=== PATIENT | male | born 1950 | race Caucasian/White ===

== ENCOUNTER 2018-06-27 13:53 | Emergency (ER) | payer SELFPAY ==
[~2018-06-27] VITALS: Ht 172.7 cm; Wt 69.4 kg
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
[2018-06-27 14:16] LABS: BASOPHILS % (AUTO) 0.3 % (0.0-2.0); EOSINOPHILS % (AUTO) 2.1 % (0.0-6.0); HEMATOCRIT 42 % (39-51); HEMOGLOBIN 14.5 g/dL (13.5-17.5); LYMPHOCYTES # (AUTO) 1.8 /CMM (0.8-4.8); LYMPHOCYTES % (AUTO) 25.9 % (20.0-44.0); MEAN CORPUSCULAR HGB CONC 34 g/dl (31.0-36.0); MEAN CORPUSCULAR VOLUME 87 fL (80-96); MONOCYTES # (AUTO) 0.6 /CMM (0.1-1.30); MONOCYTES % (AUTO) 7.9 % (2.0-12.0); NEUTROPHILS # (AUTO) 4.5 /CMM (1.8-8.9); NEUTROPHILS % (AUTO) 63.8 % (43.0-81.0); PLATELET COUNT (AUTO) 127 /CMM (150-450); RED BLOOD CELL COUNT(AUTO) 4.87 MIL/uL (4.5-6.0)
--- NOTE | 2018-06-27 14:23 | NUR ---
URINE COLLECTED AND SENT TO LAB
[2018-06-27 14:30] LABS: CALCIUM, SERUM 8.3 mg/dL (8.5-10.1); CARBON DIOXIDE 29 mmol/L (21-32); CHLORIDE 104 mmol/L (98-107); CREATININE 0.7 mg/dL (0.6-1.3); GLUCOSE 97 mg/dL (74-106); SODIUM SERUM 138 mmol/L (136-145); UREA NITROGEN, BLOOD 13 mg/dL (7-18)
[2018-06-27 14:34] LABS: ACETAMINOPHEN 0 ug/ml (10-30); ALANINE AMINOTRANSFERASE 41 U/L (12-78); ALBUMIN 3.2 g/dL (3.4-5.0); ALCOHOL, BLOOD < 3 mg/dL (0-0); ALKALINE PHOSPHATASE 88 U/L (46-116); ASPARTATE AMINOTRANSFERASE 19 U/L (15-37); BILIRUBIN,DIRECT 0.1 mg/dL (0.0-0.2); BILIRUBIN,TOTAL 0.4 mg/dL (0.2-1.0); SALICYLATE 2.7 mg/dL (2.8-20.0); TOTAL PROTEIN, SERUM 6.3 g/dL (6.4-8.2)
--- NOTE | 2018-06-27 14:38 | NUR ---
UNABLE TO TAKE TO CT, PT IS AGITATED, DR YARBROUGH MADE AWARE.
[2018-06-27] MEDS ORDERED: WATER FOR INJECTION,STERILE 10 ML ONE (14:40)
[2018-06-27] MEDS ORDERED: diphenhydrAMINE HCL 50 MG/ML VIAL ONE (14:40)
[2018-06-27] MEDS ORDERED: ZIPRASIDONE MESYLATE 20 MG/VIAL VIAL IM ONE ×2 (14:40→15:00)
[2018-06-27] MEDS ORDERED: diphenhydrAMINE HCL 50 MG/ML VIAL IM ONE (15:00)
[2018-06-27 15:03] LABS: APPEARANCE,URINE Clear (CLEAR); BILIRUBIN,URINE Negative (NEGATIVE); BLOOD, URINE Trace-intact Ery/uL (NEGATIVE); COLOR,URINE Yellow (YELLOW); KETONES,URINE Negative (NEGATIVE); LEUKOCYTE ESTERASE ,URINE Negative (NEGATIVE); NITRITE, URINE Negative (NEGATIVE); PROTEIN,URINE Negative (NEGATIVE); UGLUCOSE Negative (NEGATIVE); UROBILINOGEN,URINE 0.2 EU/dL (0.2)
[2018-06-27 15:10] LABS: BACTERIA,URINE Rare /HPF (None Seen); SQUAMOUS EPITHELIAL CELL,UR Few /HPF (None Seen)
[2018-06-27] MEDS ORDERED: HALOPERIDOL LACTATE INJ 5 MG/ML VIAL IM ONE (16:30)
[2018-06-27] MEDS ORDERED: LORAZEPAM INJ 2 MG/ML VIAL IM ONE (16:30)
[2018-06-27] MEDS ORDERED: LORAZEPAM INJ 2 MG/ML VIAL ONE (16:42)
[2018-06-27] MEDS ORDERED: HALOPERIDOL LACTATE INJ 5 MG/ML VIAL ONE (16:42)
--- NOTE | 2018-06-27 17:32 | NUR ---
PT TO CT
--- NOTE | 2018-06-27 18:41 | NUR ---
CALLED LAB TO DRAW SALICILATE LEVEL
--- NOTE | 2018-06-27 22:18 | NUR ---
PT AROUSABLE TO PAIN, RESPONDS VERBALLY, PT ON MONITOR, VSS
--- NOTE | 2018-06-27 23:57 | NUR ---
REPORT GIVEN TO GRAYSON HASSAN FOR [facility]
--- NOTE | 2018-06-27 23:59 | NUR ---
Assumed care of pt. pt resting in bed w/ HOB elevated, resp even & unlabored, nad noted, on continuous pulse-ox w/ cardiac monitoring, bed low to ground w/ side rails up. Will continue to monitor.
--- NOTE | 2018-06-28 01:45 | NUR ---
pt continues to sleep in bed w/ resp even & unlabored, on continuous pulse-ox w/ cardiac monitoring. Bed low to ground w/ siderails up for safety.
--- NOTE | 2018-06-28 04:20 | NUR ---
pt urinated all over gurney, not answering questions, going back to sleep. Linens changed, bed low to ground w/ side rails up, on continuous monitoring.
--- NOTE | 2018-06-28 06:00 | NUR ---
Pt asleep in bed, supine, w/ resp even & unlabored, responds to tactile stimuli, moving all extremities w/ nad noted. On continuous monitoring.
--- NOTE | 2018-06-28 06:46 | NUR ---
Pt more awake, alert, sitting up in bed w/ resp even & unlabored, calm, continues to refuse to answer questions. Asked pt name, states his name is "Markus", but refused to give last name and birthday, stating, "That's personal. You don't need to know." pt on continuous monitoring.
--- NOTE | 2018-06-28 07:39 | NUR ---
ASSESSED PT ON BED,ON 2 PT RESTRAINT, NOT IN RESPIRATORY DISTRESS, V/S STABLE, KEPT RESTED AND COMFORTABLE, WILL CONTINUE TO MONITOR.
--- NOTE | 2018-06-28 07:45 | NUR ---
AT BEDSIDE FOR EVAL.
--- NOTE | 2018-06-28 07:57 | NUR ---
ADMITTING AT BEDSIDE FOR PT'S INFO.
--- NOTE | 2018-06-28 08:38 | NUR ---
SUZI ORTEGA CALLED FOR EVAL
--- NOTE | 2018-06-28 10:15 | NUR ---
SUZI [employer] AT BEDSIDE FOR EVAL.
--- NOTE | 2018-06-28 11:31 | NUR ---
Patient discharged to home in stable condition. Written and verbal after care instructions given. Patient verbalizes understanding of instruction.
[2018-06-28 11:33] VITALS: BP 131/70
== END 2018-06-28 11:33 | disposition home or self-care (01) ==
LOC: EDBD 13:55 → ER 13:55
DX: F28 Other psychotic disorder not due to a substance or known physiological condition (principal); R45.1 Restlessness and agitation
CPT/HCPCS: 36415; 70450-TC; 80048-TC; 80076-TC; 80305; 81000-TC; 85025-TC; G0480; J1200; J1630; J2060; J3486